=== PATIENT | female | born 1950 | race Caucasian/White ===

== ENCOUNTER 2021-06-17 08:43 | Emergency (ER) | payer MEDICARE, BC, SELFPAY ==
[2021-06-17 08:59] VITALS: BP 184/79; PULSE 66; O2SAT 99
[2021-06-17 09:00] VITALS: BP 179/82; PULSE 67; O2SAT 99
[2021-06-17 09:05] VITALS: BP 184/79; PULSE 76; RESP 18; TEMP 36.6; O2SAT 96; BMI 19.0
[2021-06-17 09:14] LABS: Add Manual Diff / Slide Review NO; Basophils Absolute Auto 100 /uL (0-100); Eosinophils Absolute Auto 100 /uL (0-450); Eosinophils Percent Auto 2.2 % (2-4); Hematocrit 41.9 % (36-46); Hemoglobin 13.9 g/dL (12.0-16.0); Lymphocytes Absolute Auto 1500 /uL (1100-4500); Lymphocytes Percent Auto 23.8 % (25-40); Mean Corpuscular HGB Conc 33.1 % (30-36); Mean Corpuscular Hemoglobin 29.8 PG (26-34); Mean Corpuscular Volume 90.1 fL (80-100); Monocytes Absolute Auto 300 /uL (0-900); Monocytes Percent Auto 5.1 % (3-14); Neutrophils Absolute Auto 4300 /uL (1500-7000); Neutrophils Percent Auto 67.9 % (50-75); Platelet Count 208 X10^3/uL (150-400); Red Blood Cell Count 4.65 X10^6/uL (4.0-5.2); Red Cell Distribution Width 12.6 % (11.6-14.8); White Blood Cell Count 6.3 X10^3/uL (4.5-11.0)
[2021-06-17 09:20] LABS: BUN Creatinine Ratio 27.4 (6-22); Blood Urea Nitrogen 20 mg/dL (7-17); Calcium 9.7 mg/dL (8.4-10.2); Carbon Dioxide 33 mmol/L (22-32); Chloride 102 mmol/L (98-107); Estimated Glomerular Filt Rate > 60.0 mL/min (>60); Glucose 99 mg/dL (80-110); HEMOLYSIS < 15 (0-50); Potassium 4.1 mmol/L (3.4-5.1); Sodium 142 mmol/L (137-145)
--- NOTE | 2021-06-17 09:24 | ED_ITS ---
HPI - Recheck/Abnormal Lab/Rx General Chief Complaint: Recheck/Abnormal Lab/Rx Stated Complaint: abnormal labs/potassium 7.7 Time Seen by Provider: 06/17/21 09:02 Source: patient Mode of arrival: Ambulatory Limitations: no limitations History of Present Illness HPI narrative: This is a 71-year-old female who had outpatient labs drawn as she has been feeling fatigued lately. She states she was told her potassium was 7.7 it was drawn yesterday and sent as an outpatient lab draw from [place] to [facility]. Patient has not had any known renal issues. She states she has had some fatigue and occasional vertigo. She is being referred to ENT and her physician told her there was something on her year that might be contributing. Otherwise she denies any symptoms at issues. She has occasiona lly had some burning with urine but this has been very intermittent. She denies any other chest pain, shortness of breath, no nausea or vomiting or other GI or urinary symptoms. She is on medicine for blood pressure. Related Data Previous Rx's Medication Instructions Recorded acyclovir 400 mg tablet 400 mg PO BID #180 tab 06/08/16 acyclovir 800 mg tablet 800 mg PO BIDP PRN #60 tab 06/08/16 hydrochlorothiazide 12.5 mg tablet 12.5 mg PO QDAY #90 tab 06/08/16 omeprazole 20 mg capsule,delayed 0 PO QDAY PRN #90 tab 11/01/16 release Allergies Allergy/AdvReac Type Severity Reaction Status Date / Time metoprolol [METOPROLOL] Allergy Unknown ER Verified 06/17/21 09:05 VISIT-HIGH BP BUT LOW HR Review of Systems Review of Systems ROS Unobtainable: All systems reviewed & are unremarkable except as noted in HPI and below Patient History Surgical History History of cataract removal with insertion of prosthetic lens Status post ovarian cystectomy Status post tubal ligation Family History Father Cancer Mother Heart disease Sister Age: 74 Lymphoma Cancer Social History Smoking Status: Never smoker Smoking Status: Never smoker Substance Use Type: does not use Exam Narrative Exam Narrative: GENERAL: Alert and oriented x three, thin female in no acute distress. HEENT: Head normocephalic, atraumatic, EOMI, pupils reactive, face symmetric, moist mucous membranes NECK: Supple, full range of motion CARDIOVASCULAR: Regular rate and rhythm without murmurs, rubs or gallops. RESPIRATORY: Breath sounds equal bilaterally, no wheezes rales or rhonchi. ABDOMEN: Soft, nontender. Normoactive bowel sounds all 4 quadrants. No guarding or rebound, rigidity, no mass EXTREMITIES: Normal range of motion, no clubbing or edema. Neurovascularly intact NEUROLOGICAL: Cranial nerves II through XII grossly intact. Moving all extremities SKIN: Warm, dry, no petechiae, no rashes or lesions. Initial Vital Signs Initial Vital Signs: Vital Signs Pulse Rate 66 06/17/21 08:59 Blood Pressure 184/79 H 06/17/21 08:59 Pulse Oximetry 99 06/17/21 08:59 Course Orders Ordered: ED Orders 06/17/21 08:55 BMP [Basic Metabolic Panel] Stat CBC Auto Diff [Complete Blood Count AUTO DIFF] Stat 06/17/21 09:03 EKG-12 Lead Stat Vital Signs Vital signs: Vital Signs - 8 hr 06/17/21 09:05 Temperature 98 F Pulse Rate 76 Respiratory Rate 18 Blood Pressure 184/79 H Pulse Oximetry 96 MDM - Recheck/Abnormal Lab/Rx Lab Data Result diagrams: 06/17/21 08:55 06/17/21 08:55 Labs: Lab Results 06/17/21 06/17/21 Range/Units 08:55 08:55 WBC 6.3 (4.5-11.0) X10^3/uL RBC 4.65 (4.0-5.2) X10^6/uL Hgb 13.9 (12.0-16.0) g/dL Hct 41.9 (36-46) % MCV 90.1 (80-100) fL MCH 29.8 (26-34) PG MCHC 33.1 (30-36) % RDW 12.6 (11.6-14.8) % Plt Count 208 (150-400) X10^3/uL Neut % (Auto) 67.9 (50-75) % Lymph % (Auto) 23.8 L (25-40) % [place] % (Auto) 5.1 (3-14) % Eos % (Auto) 2.2 (2-4) % Baso % (Auto) 1.0 (0-2) % Neut # (Auto) 4300 (2640-3167) /uL Lymph # (Auto) 1500 (1110-2578) /uL [place] # (Auto) 300 (0-900) /uL Eos # (Auto) 100 (0-450) /uL Baso # (Auto) 100 (0-100) /uL Sodium 142 (137-145) mmol/L Potassium 4.1 (3.4-5.1) mmol/L Chloride 102 (98-107) mmol/L Carbon Dioxide 33 H (22-32) mmol/L BUN 20 H (7-17) mg/dL Creatinine 0.73 (0.52-1.04) mg/dL Estimated GFR > 60.0 (>60) mL/min BUN/Creatinine Ratio 27.4 H (6-22) Glucose 99 (80-110) mg/dL Calcium 9.7 (8.4-10.2) mg/dL Urine Dip Bedside Urine Glucose Negative Bedside Urine Bilirubin - Negative Bedside Urine Ketone - Negative Urine Specific [place] 1.015 Bedside Urine Occult Blood - Negative Bedside Urine pH 5.5 Bedside Urine Protein - Negative Bedside Urine Urobilinogen - Negative Bedside Urine Nitrite - Negative Bedside Urine Leukocytes - Negative Esterase ECG Data Attestation: I personally reviewed and interpreted this ECG as follows: Interpretation: Sinus bradycardia rate of 55, DC 150 QRS 84 and QTC of 417. T-wave inverted in V1 V2. No acute changes otherwise. MDM Narrative Medical decision making narrative: This is a 71-year-old female on antihypertensive which she states starts with the letter L. patient was seen for outpatient labs for fatigue. She was told her potassium was elevated. On repeat labs today it is normal and suspect she had hemolysis [place] [facility] [place]. Patient did have EKG which shows some T-wave inversion but no other changes in V1 V2. Patient does not have any other symptoms besides fatigue and occasional vertigo which is being followed and she has been referred to ENT for a spot on her ear. Discharge Plan Departure Patient Disposition: Home Clinical Impression: No problem, feared complaint unfounded Activity Restrictions/Additional Instructions: Your potassium level today is normal. Your labs were repeated today including a CBC and BMP. Likely your labs that were drawn yesterday were hemolyzed and this can cause a falsely elevated potassium level. Please return if you have any new or concerning symptoms. Prescriptions: No Action acyclovir 400 MG tablet 400 mg PO BID Qty: 180 0RF acyclovir 800 MG tablet 800 mg PO BIDP PRNQty: 60 0RF hydrochlorothiazide 12.5 MG tablet 12.5 mg PO QDAY Qty: 90 2RF omeprazole 20 MG capsule,delayed release(DR/EC) 0 PO QDAY PRNQty: 90 1RF Referrals: Charlene Carrera ARNP [Primary Care Provider] -
[2021-06-17 09:30] VITALS: BP 176/81; PULSE 60; RESP 30; O2SAT 100
[2021-06-17 09:49] VITALS: BP 159/70; PULSE 64; O2SAT 99
== END 2021-06-17 09:51 | disposition home or self-care (01) ==
PROVIDERS: Emergency Provider Emergency Medicine; Family Provider Family Medicine; PCP Nurse Practitioner Family
DX: R53.83 Other fatigue (principal); R00.1 Bradycardia, unspecified; Z71.1 Person with feared health complaint in whom no diagnosis is made
CPT/HCPCS: 36415; 80048; 81003; 85025; 93005; 99283

== ENCOUNTER → 2021-08-16 08:14 | Outpatient (CLI) | payer MEDICARE, BC, SELFPAY ==
--- NOTE | 2021-08-16 | DI.MG.S_ITS ---
BILATERAL DIGITAL DIAGNOSTIC MAMMOGRAM 3D/2D: 08/16/2021 CLINICAL: Baseline. Mastodynia. No prior exams were available for comparison. The tissue of both breasts is heterogeneously dense. This may lower the sensitivity of mammography. No significant masses, calcifications, or other findings are seen in either breast. IMPRESSION: NEGATIVE There is no abnormality seen in the left breast to correspond with the reported pain at 2 o'clock that the patient reports is not currently present at the time of the exam. Clinical followup is recommended. There is no mammographic evidence of malignancy. A 1 year screening mammogram is recommended. This exam was interpreted at Station ID: [id number]. NOTE: For mammograms, a report in lay terms will be sent to the patient. Approximately 15% of breast malignancies will not be visualized mammographically. In the management of a palpable breast mass, a negative mammogram must not discourage biopsy of a clinically suspicious lesion. Electronically Signed By: Keyur Hunt M.D. ar/:08/16/2021 10:02:13 letter sent: Clinical Evaluation ACR BI-RADS Category 1: Negative 3341F
== END ==
PROVIDERS: Family Provider Family Medicine; PCP Nurse Practitioner Family; Referring Provider Nurse Practitioner Family; Visit Provider Nurse Practitioner Family
DX: N64.4 Mastodynia (principal); M81.0 Age-related osteoporosis without current pathological fracture; Z78.0 Asymptomatic menopausal state; Z79.890 Hormone replacement therapy
CPT/HCPCS: 77066; 77080; G0279

== ENCOUNTER 2022-03-28 08:11 | Day surgery (SDC) | payer MEDICARE, BC, SELFPAY ==
--- NOTE | 2022-03-28 | PATH_ITS ---
[facility] Accession Number: [id number] . 01 Material submitted: . PART A: stomach - STOMACH PART B: esophagus, E-G Junction - GE JUCNTION . 01 Diagnosis: A. Stomach, Biopsy: Gastric mucosa with minimal chronic nonspecific inflammation. No Helicobacter pylori organisms identified on immunohistochemical evaluation. No intestinal metaplasia, dysplasia, or malignancy identified. . B. GE Junction, Biopsy: Squamocolumnar junctional mucosa with mild chronic inflammation. No goblet cell metaplasia or fungal organisms identified on H/E slide. No dysplasia or malignancy identified. [facility] 03/30/2022 1134 Local . 01 Electronically signed: . Magnolia Koenig MD, Pathologist NPI- [id number] . 01 Gross description: . Part A: STOMACH: Received in formalin are 3 fragment(s) of walker, soft tissue measuring 0.3 x 0.1 x 0.1 cm to 0.1 x 0.1 x 0.1 cm submitted entirely in 1 cassette(s) Part B: GE JUCNTION: Received in formalin is 1 fragment(s) of walker, soft tissue measuring 0.2 x 0.1 x 0.1 cm submitted entirely in 1 cassette(s) /CPE 03/29/2022 0622 Local . 01 Microscopic: . An immunohistochemical stain was performed to evaluate for Helicobacter organisms and is negative. The control stain showed appropriate reactivity. . 01 Pathologist provided ICD-10: K29.30, K20.80, K21.9 . 01 CPT . 338995, 799729, [id number] Specimen Comment: A courtesy copy of this report has been sent to [phone] Performed at: 01 [facility] [address] [place] [address] [address], [place], [place] [id number] MD Joel Bell MD Phone: [phone]
[2022-03-28] MEDS: LACTATED RINGERS 1,000 ML 200 ML IV (08:39)
[2022-03-28 08:52] VITALS: BP 147/78; PULSE 67; RESP 12; TEMP 36.7; O2SAT 99
--- NOTE | 2022-03-28 09:55 | PM.HP.1 ---
History of Present Illness History of Present Illness Date Patient Seen: 03/28/22 Time Patient Seen: 09:55 Chief complaint: SDC Narrative: 72-year-old woman with dysphagia here for esophagoduodenoscopy and colonoscopy. Please refer to the H& P from January 2022 for further detail. Patient History Surgical History History of cataract removal with insertion of prosthetic lens Status post ovarian cystectomy Status post tubal ligation Family & Social History Family History Father Cancer Mother Heart disease Sister Age: 75 Lymphoma Cancer Social History: household members spouse Tobacco & Substance use: Smoking Status Never smoker alcohol intake frequency holiday/special occasion Substance Use Type does not use Meds Home Medications and Allergies Home Medications Medication Instructions Recorded Confirmed Type cholecalciferol (vitamin D3) 125 125 mcg PO DAILY 01/27/22 03/28/22 History mcg (5,000 unit) capsule dexamethasone 0.7 mg intravitreal 0.7 mg intravitreal DAILY 01/27/22 03/28/22 History implant (Ozurdex) fluticasone propionate 50 2 spray intranasal DAILY 01/27/22 03/28/22 History mcg/actuation nasal spray,suspension losartan 25 mg tablet 25 mg PO DAILY 01/27/22 03/28/22 History omeprazole 20 mg capsule,delayed 20 mg PO QDAY 03/28/22 03/28/22 History release Allergies Allergy/AdvReac Type Severity Reaction Status Date / Time metoprolol [METOPROLOL] Allergy Unknown ER Verified 03/28/22 08:41 VISIT-HIGH BP BUT LOW HR fentanyl AdvReac Intermediate Verified 03/28/22 08:41 Exam Vital Signs (past 8 hours): - 03/28/22 08:52 Temperature 98.1 F Pulse Rate 67 Respiratory Rate 12 Blood Pressure 147/78 H Pulse Oximetry 99 Oxygen Delivery Method Room Air Oxygen Delivery Method Room Air Narrative Exam Narrative: General adult woman alert oriented no acute distress Abdomen soft nontender nondistended Assessment & Plan Assessment and plan (1) Esophageal dysphagia: Status: Acute Assessment & Plan narrative: 72-year-old woman with esophageal dysphagia here for EGD possible dilation and screening colonoscopy. Overview of the procedures were discussed. Procedural risks including bleeding, missed diagnosis, intestinal perforation were discussed. Questions answered she is in agreement with this plan. Time Spent With Patient Critical Care time: I spent a total of [] minutes of critical care time on this patient's care today; this time is exclusive of procedural time.
--- NOTE | 2022-03-28 10:00 | PM.OP.EC ---
Operative Date/Time/Diagnoses Date of procedure: 03/28/22 Time of procedure: 10:00 Pre-op diagnosis: Esophageal dysphagia, screening colonoscopy Post-op diagnosis: same Procedure & Clinicians Study performed: Esophagoduodenoscopy and colonoscopy Same procedure as scheduled: Yes Indications: Esophageal dysphagia, screening colonoscopy Surgeon: Rafiq Holman Procedure Notes Procedure in detail: The history and physical was performed/updated and the patient is ASA class is 2 . The procedure was discussed in detail with the patient. Potential risks complications including infection, bleeding, missed diagnosis, perforation, need for surgery, and were explained. Their questions were answered and informed consent was obtained. Patient placed in left lateral decubitus position. Time out was performed. Sedation was administered by anesthesia. A bite block was placed. the scope was inserted into the mouth and advanced through the esophagus and into the stomach. There was no esophageal stricture periods the stomach was notable for mild gastritis no active hemorrhage or ulcer. The pylorus was intubated and the duodenum was normal to the 2nd portion. The scope was retroflexed within the stomach and there was a moderate-sized hiatal hernia. No ulcers, or gastritis. The scope was withdrawn into the esophagus the Z line was seen at 35 cm from the incisions. There was no Lackey's esophagitis or masses or strictures. Stomach was desufflated and scope removed. Patient tolerated procedure well. Examination began with a thorough inspection of the perianal area there was no evidence of fissures, fistulae, external hemorrhoids or cutaneous malignancy. The colonoscopy scope was then placed into the anal canal and was advanced to the cecum, which was identified by the ileocecal valve, the appendiceal orifice and the confluence of the taenia. The scope was then slowly withdrawn examining colon thoroughly in all directions, irrigating it of any residual stool. FINDINGS 1. Gastritis-mild. No active hemorrhage. Biopsies taken with forceps. 2. GE junction at 37 cm from incisors biopsies taken. 3. Normal colonoscopy The patient tolerated the procedure well. They will be discharged once criteria are met. The prep was of good/excellent quality. The withdrawl time was 7 minutes. Specimen(s): other (Gastric biopsy, GE junction.) Impression: Normal colonoscopy. No esophageal stricture. Mild gastritis Post-procedure Plan for aftercare: Increase omeprazole to 20 mg twice daily No need for further colonoscopy Disposition: same day surgery
[2022-03-28 10:24] VITALS: BP 136/73; PULSE 86; RESP 19; TEMP 36.2; O2SAT 100
[2022-03-28 10:29] VITALS: BP 146/81; PULSE 74; RESP 17; O2SAT 100
[2022-03-28 10:34] VITALS: BP 148/73; PULSE 69; RESP 16; O2SAT 98
[2022-03-28 10:53] VITALS: BP 145/75; PULSE 68; RESP 13; TEMP 36.3; O2SAT 100
== END 2022-03-28 10:57 | disposition home or self-care (01) ==
PROVIDERS: Family Provider Family Medicine; PCP Family Medicine; Referring Provider Surgery; Visit Provider Surgery
PROC: 0DJ08ZZ Inspection of Upper Intestinal Tract, Via Natural or Artificial Opening Endoscopic (ICD-10-PCS; CPT 43235; principal; 2022-03-28 09:45)
PROC: 0DJD8ZZ Inspection of Lower Intestinal Tract, Via Natural or Artificial Opening Endoscopic (ICD-10-PCS; CPT 45378; 2022-03-28 09:45)
DX: Z12.11 Encounter for screening for malignant neoplasm of colon (principal); R13.10 Dysphagia, unspecified; K44.9 Diaphragmatic hernia without obstruction or gangrene; K29.50 Unspecified chronic gastritis without bleeding
CPT/HCPCS: 43239; G0121; J2704

== ENCOUNTER 2022-09-01 11:00 | Emergency (ER) | payer MEDICARE, BC, SELFPAY ==
[2022-09-01 11:17] VITALS: BP 193/90; PULSE 63; RESP 16; TEMP 37.2; O2SAT 100; BMI 18.2
--- NOTE | 2022-09-01 11:20 | DI.RAD.S_ITS ---
PROCEDURE: XR CHEST 1V INDICATIONS: chest pain TECHNIQUE: One view of the chest was acquired. COMPARISON: None. FINDINGS: Surgical changes and devices: None. Lungs and pleura: Lungs are clear. No pleural effusions or pneumothorax. Calcified granuloma of the right lower lobe. Mediastinum: Mediastinal contours appear normal. Heart size is normal. Bones and chest wall: No suspicious bony lesions. Overlying soft tissues appear unremarkable. IMPRESSION: No acute cardiopulmonary process. Dictated by: Rex Greene M.D. on 09/01/2022 at 12:16 Approved by: Rex Greene M.D. on 09/01/2022 at 12:17
[2022-09-01 11:53] LABS: Add Manual Diff / Slide Review NO; Basophils Absolute Auto 100 /uL (0-100); Basophils Percent Auto 1.1 % (0-2); Eosinophils Absolute Auto 100 /uL (0-450); Eosinophils Percent Auto 1.3 % (2-4); Hematocrit 40.1 % (36-46); Hemoglobin 13.3 g/dL (12.0-16.0); Lymphocytes Absolute Auto 1300 /uL (1100-4500); Lymphocytes Percent Auto 22.4 % (25-40); Mean Corpuscular Hemoglobin 29.6 PG (26-34); Mean Corpuscular Volume 89.5 fL (80-100); Monocytes Absolute Auto 300 /uL (0-900); Monocytes Percent Auto 5.1 % (3-14); Neutrophils Absolute Auto 4000 /uL (1500-7000); Neutrophils Percent Auto 70.1 % (50-75); Platelet Count 245 X10^3/uL (150-400); Red Blood Cell Count 4.48 X10^6/uL (4.0-5.2); Red Cell Distribution Width 13.1 % (11.6-14.8); White Blood Cell Count 5.6 X10^3/uL (4.5-11.0)
[2022-09-01 11:58] LABS: Alanine Aminotransferase 21 IU/L (<35); Albumin 4.3 g/dL (3.5-5.0); Albumin Globulin Ratio 1.5 (1.0-2.8); Alkaline Phosphatase 72 U/L (38-126); Aspartate Aminotransferase 26 IU/L (14-36); BUN Creatinine Ratio 26.2 (6-22); Bilirubin Total 0.5 mg/dL (0.2-1.3); Blood Urea Nitrogen 17 mg/dL (7-17); Calcium 9.6 mg/dL (8.4-10.2); Carbon Dioxide 27 mmol/L (22-32); Chloride 106 mmol/L (98-107); Creatine Kinase 62 U/L (30-135); Estimated Glomerular Filt Rate > 60 mL/min (>60); Globulin 2.9 g/dL (1.7-4.1); Glucose 92 mg/dL (80-110); HEMOLYSIS < 15 (0-50); INR 1.1 (0.9-1.3); Lipase 119 U/L (23-300); Potassium 4.2 mmol/L (3.4-5.1); Prothrombin Time 12.3 SECONDS (10.1-12.7); Sodium 139 mmol/L (137-145); Total Protein 7.2 g/dL (6.3-8.2)
[2022-09-01 12:01] LABS: PTT Partial Thromboplastin Tim 33 SECONDS (26-36)
[2022-09-01 12:09] LABS: Troponin I < 0.012 ng/mL (0.01-0.034)
[2022-09-01 15:32] VITALS: BP 171/74; PULSE 64; RESP 18; O2SAT 100
[2022-09-01 16:02] LABS: Troponin I < 0.012 ng/mL (0.01-0.034)
--- NOTE | 2022-09-01 17:01 | ED_ITS ---
HPI - Arrhythmia/Palpitations General Chief Complaint: Arrhythmia/Palpitations Stated Complaint: Heart flutter this morning, L arm numb Time Seen by Provider: 09/01/22 16:59 History of Present Illness HPI narrative: This is a 72-year-old female with history of hypertension on losartan, she also has branch retinal vein occlusion and gets eye injections every 3 months with steroids. Patient states that last night she laid down about 9:00 a.m. at night she felt what she describes as flip-flopping in her chest that was pretty significant for about 2 minutes. She states it resolved she has not had anything as persistent. She states she would a little bit epigastric discomfort with some belching. Patient states she is had some Tums. She fell asleep and states that her epigastric pain resolved. She states she was belching a lot. She denies any shortness of breath, no lightheadedness or syncope. No fevers, cold cough, cough or congestion. She states she is has not chest pain remotely in the past but nothing recently she is occasionally had some fluttering in her chest but not this aggressive. No nausea no vomiting no issues with bowel movements or urination. No swelling in extremities. Patient states she is been a little bit more fatigued lately but is able to do all her normal activities. She is on losartan she takes a gummy for calcium and vitamin-D supplement. No aspirin or thinners. She would a tubal ligation in the past she is had some biopsies a lump in her breast and other locations but denies cancer. She states she does get steroid injections for long period of time every 3 months. No tobacco, alcohol or illicit. She lives on [facility] is her primary care. Patient is accompanied by her . Related Data Home Medications Medication Instructions Recorded Confirmed cholecalciferol (vitamin D3) 125 125 mcg PO DAILY 01/27/22 03/28/22 mcg (5,000 unit) capsule dexamethasone 0.7 mg intravitreal 0.7 mg intravitreal DAILY 01/27/22 03/28/22 implant (Ozurdex) fluticasone propionate 50 2 spray intranasal DAILY 01/27/22 03/28/22 mcg/actuation nasal spray,suspension losartan 25 mg tablet 25 mg PO DAILY 01/27/22 03/28/22 Previous Rx's Medication Instructions Recorded omeprazole 20 mg capsule,delayed 20 mg PO BID #30 caps 03/28/22 release Allergies Allergy/AdvReac Type Severity Reaction Status Date / Time metoprolol [METOPROLOL] Allergy Unknown ER Verified 03/28/22 08:41 VISIT-HIGH BP BUT LOW HR fentanyl AdvReac Intermediate Verified 03/28/22 08:41 Review of Systems Review of Systems ROS Unobtainable: All systems reviewed & are unremarkable except as noted in HPI and below Patient History Surgical History History of cataract removal with insertion of prosthetic lens Status post ovarian cystectomy Status post tubal ligation Family History Father Cancer Mother Heart disease Sister Age: 76 Lymphoma Cancer Social History household members: spouse Smoking Status: Never smoker Smoking Status: Never smoker alcohol intake frequency: holidays/special occasions only Substance Use Type: does not use Exam Narrative Exam Narrative: GENERAL: Alert and oriented x three, thin elderly female in mild distress. HEENT: Head normocephalic, atraumatic, EOMI, pupils reactive, face symmetric, moist mucous membranes NECK: Supple, full range of motion CARDIOVASCULAR: Regular rate and rhythm without murmurs, rubs or gallops. No JVD. No swelling bilateral lower extremities. RESPIRATORY: Breath sounds equal bilaterally, no wheezes rales or rhonchi. No tachypnea, no accessory muscle use. ABDOMEN: Soft, nontender. Normoactive bowel sounds all 4 quadrants. No guarding or rebound, rigidity, no mass : No CVA tenderness EXTREMITIES: Normal range of motion, no clubbing or edema. Neurovascularly intact NEUROLOGICAL: Cranial nerves II through XII grossly intact. Moving all extremities SKIN: Warm, dry, no petechiae, no rashes or lesions. Initial Vital Signs Initial Vital Signs: Vital Signs Temperature 99.0 F 09/01/22 11:17 Pulse Rate 63 09/01/22 11:17 Respiratory Rate 16 09/01/22 11:17 Blood Pressure 193/90 H 09/01/22 11:17 Pulse Oximetry 100 09/01/22 11:17 Oxygen Delivery Method Room Air 09/01/22 11:17 Course Orders Ordered: ED Orders 09/01/22 11:20 XR chest 1V Stat 09/01/22 11:31 EKG-12 Lead Stat 09/01/22 11:38 Complete Blood Count AUTO DIFF Stat Comprehensive Metabolic Panel Stat Lipase Stat Magnesium Stat PTT Partial Thromboplastin [place] Stat Prothrombin Time INR Stat Troponin & CK Cardiac Panel Stat 09/01/22 15:22 Troponin I Stat 09/01/22 15:27 EKG-12 Lead Stat 09/01/22 17:04 COVID19 -Nasal RAPID Stat Vital Signs Vital signs: Vital Signs - 8 hr 09/01/22 11:17 09/01/22 15:32 09/01/22 17:05 Temperature 99.0 F Pulse Rate 63 64 63 Respiratory Rate 16 18 Blood Pressure 193/90 H 171/74 H Pulse Oximetry 100 100 100 Oxygen Delivery Method Room Air Room Air MDM - Arrhythmia/Palpitations Lab Data 09/01/22 11:38 09/01/22 11:38 Labs: Lab Results 09/01/22 09/01/22 09/01/22 Range/Units 11:38 11:38 11:38 WBC 5.6 (4.5-11.0) X10^3/uL RBC 4.48 (4.0-5.2) X10^6/uL Hgb 13.3 (12.0-16.0) g/dL Hct 40.1 (36-46) % MCV 89.5 (80-100) fL MCH 29.6 (26-34) PG MCHC 33.0 (30-36) % RDW 13.1 (11.6-14.8) % Plt Count 245 (150-400) X10^3/uL Neut % (Auto) 70.1 (50-75) % Lymph % (Auto) 22.4 L (25-40) % [place] % (Auto) 5.1 (3-14) % Eos % (Auto) 1.3 L (2-4) % Baso % (Auto) 1.1 (0-2) % Neut # (Auto) 4000 (2246-9075) /uL Lymph # (Auto) 1300 (6812-9403) /uL [place] # (Auto) 300 (0-900) /uL Eos # (Auto) 100 (0-450) /uL Baso # (Auto) 100 (0-100) /uL PT 12.3 (10.1-12.7) SECONDS INR 1.1 (0.9-1.3) APTT 33 (26-36) SECONDS Sodium 139 (137-145) mmol/L Potassium 4.2 (3.4-5.1) mmol/L Chloride 106 (98-107) mmol/L Carbon Dioxide 27 (22-32) mmol/L BUN 17 (7-17) mg/dL Creatinine 0.65 (0.52-1.04) mg/dL Estimated GFR > 60 (>60) mL/min BUN/Creatinine Ratio 26.2 H (6-22) Glucose 92 (80-110) mg/dL Calcium 9.6 (8.4-10.2) mg/dL Magnesium 2.0 (1.6-2.3) mg/dL Total Bilirubin 0.5 (0.2-1.3) mg/dL AST 26 (14-36) IU/L ALT 21 (<35) IU/L Alkaline Phosphatase 72 (38-126) U/L Total Creatine Kinase 62 (30-135) U/L CK-MB (CK-2) TNP CK-MB (CK-2) Rel Index TNP Troponin I < 0.012 (0.01-0.034) ng/mL Total Protein 7.2 (6.3-8.2) g/dL Albumin 4.3 (3.5-5.0) g/dL Globulin 2.9 (1.7-4.1) g/dL Albumin/Globulin Ratio 1.5 (1.0-2.8) Lipase 119 (23-300) U/L SARS-CoV-2 (PCR) (Negative) 09/01/22 09/01/22 Range/Units 15:22 17:04 WBC (4.5-11.0) X10^3/uL RBC (4.0-5.2) X10^6/uL Hgb (12.0-16.0) g/dL Hct (36-46) % MCV (80-100) fL MCH (26-34) PG MCHC (30-36) % RDW (11.6-14.8) % Plt Count (150-400) X10^3/uL Neut % (Auto) (50-75) % Lymph % (Auto) (25-40) % [place] % (Auto) (3-14) % Eos % (Auto) (2-4) % Baso % (Auto) (0-2) % Neut # (Auto) (1844-6915) /uL Lymph # (Auto) (4073-2939) /uL Ferry # (Auto) (0-900) /uL Eos # (Auto) (0-450) /uL Baso # (Auto) (0-100) /uL PT (10.1-12.7) SECONDS INR (0.9-1.3) APTT (26-36) SECONDS Sodium (137-145) mmol/L Potassium (3.4-5.1) mmol/L Chloride (98-107) mmol/L Carbon Dioxide (22-32) mmol/L BUN (7-17) mg/dL Creatinine (0.52-1.04) mg/dL Estimated GFR (>60) mL/min BUN/Creatinine Ratio (6-22) Glucose (80-110) mg/dL Calcium (8.4-10.2) mg/dL Magnesium (1.6-2.3) mg/dL Total Bilirubin (0.2-1.3) mg/dL AST (14-36) IU/L ALT (<35) IU/L Alkaline Phosphatase (38-126) U/L Total Creatine Kinase (30-135) U/L CK-MB (CK-2) CK-MB (CK-2) Rel Index Troponin I < 0.012 (0.01-0.034) ng/mL Total Protein (6.3-8.2) g/dL Albumin (3.5-5.0) g/dL Globulin (1.7-4.1) g/dL Albumin/Globulin Ratio (1.0-2.8) Lipase (23-300) U/L SARS-CoV-2 (PCR) Negative (Negative) Urine Dip Bedside Urine Glucose Negative Bedside Urine Bilirubin - Negative Bedside Urine Ketone - Negative Urine Specific [place] 1.010 Bedside Urine Occult Blood - Negative Bedside Urine pH 6.0 Bedside Urine Protein - Negative Bedside Urine Urobilinogen - Negative Bedside Urine Nitrite - Negative Bedside Urine Leukocytes - Negative Esterase Imaging Data Chest x-ray: Radiologist's Impresson: [address] [address] XRay Report Signed Patient: Kalani Mukherjee MR#: [id number] : 1950 Acct:[id number] Age/Sex: 72 / F Date of Service: 09/01/22 Loc: ED Accession Number: [id number] ?? Procedure: XR chest 1V Ordering Provider: Aleyda Raines D.O. PROCEDURE:? XR CHEST 1V ? INDICATIONS:? chest pain ? TECHNIQUE:? One view of the chest was acquired.? ? COMPARISON:? None. ? FINDINGS:? ? Surgical changes and devices:? None.? ? Lungs and pleura:? Lungs are clear.? No pleural effusions or pneumothorax.? Calcified granuloma of the right lower lobe. ? Mediastinum:? Mediastinal contours appear normal.? Heart size is normal.? ? Bones and chest wall:? No suspicious bony lesions.? Overlying soft tissues appear unremarkable.? ? IMPRESSION:? No acute cardiopulmonary process. ? ? ? Dictated by: Rex Greene M.D. on 09/01/2022 at 12:16 ? ? Approved by: Rex Greene M.D. on 09/01/2022 at 12:17?? ECG Data Attestation: I personally reviewed and interpreted this ECG as follows: Interpretation: Sinus bradycardia, rate of 55 RI 144 QRS 84, QTC 407. No acute ST elevation. Patient has some inverted T-waves V1 V2. Sinus rhythm rate of 62 RI 152, QRS 82 QTC 434. No dynamic changes. MDM Narrative Medical decision making narrative: This is a 72-year-old female who presents with complaint of palpitations last night that self-resolved. Patient denies any other symptoms other than some epigastric discomfort and belching patient states that resolved after some Tums she fell asleep and has not had any since then. She has negative CBC, CMP, troponin x2, LFTs, coags. Chest x-ray is negative. Urine is negative. Patient has some T-wave inversion in V1 2 3 but is present throughout EKGs including June of 2021. Discussed with patient I would recommend follow-up with Holter monitor or ZIO patch does not sound like she is been having frequent palpitations we discussed could be PVCs but would recommend some further workup. Patient and I discussed return precautions all questions answered. Discharge Plan Departure Patient Disposition: Home Clinical Impression: Palpitations Instructions: DI for Palpitations Activity Restrictions/Additional Instructions: Please follow-up with your physician for recheck, I would discuss options for Holter monitor or ZIO patch if you are having recurrent or persistent palpitations. You can continue your home medications as prescribed. Please return for recurrent episodes, persistent fast or irregular heartbeat, new chest pain, shortness of breath, lightheadedness or passing out, new swelling in her extremities, persistent vomiting, sweatiness or diaphoresis or other new or concerning changes. Prescriptions: No Action Ozurdex 0.7 mg implant 0.7 mg intravitreal DAILY losartan 25 mg tablet 25 mg PO DAILY cholecalciferol (vitamin D3) 125 mcg (5,000 unit) capsule 125 mcg PO DAILY fluticasone propionate 50 mcg/actuation spray,suspension 2 spray intranasal DAILY Rx Instructions: administer into each nostril omeprazole 20 mg capsule,delayed release(DR/EC) 20 mg PO BID Qty: 30 0RF Referrals: Ameena Metz MD [Primary Care Provider] - Stand Alone Forms: Patient Portal/API
[2022-09-01 17:05] VITALS: PULSE 63; O2SAT 100
[2022-09-01 17:45] LABS: COVID19 -Nasal RAPID Negative (Negative)
== END 2022-09-01 17:25 | disposition home or self-care (01) ==
PROVIDERS: Emergency Provider Emergency Medicine; Family Provider Family Medicine; PCP Family Medicine
DX: R00.2 Palpitations (principal); R00.1 Bradycardia, unspecified; Z20.822 Contact with and (suspected) exposure to COVID-19
CPT/HCPCS: 36415; 71045; 80053; 81003; 82550; 83690; 83735; 84484; 85025; 85610; 85730; 87635; 93005; 99284; C9803

== ENCOUNTER → 2024-02-06 08:06 | Outpatient (CLI) | payer MEDICARE, BC, SELFPAY ==
--- NOTE | 2024-02-06 08:09 | DI.MRI.S_ITS ---
PROCEDURE: MR LUMBAR SPINE WO CON INDICATIONS: SPONDYLOSIS LUMBAR REGION TECHNIQUE: Noncontrast sagittal T1 spin echo and T2 fast echo, sagittal STIR, and T2 fast spin echo through the lumbar spine. In cases with scoliosis, additional coronal T2 fast spin echo may be performed. COMPARISON: None. FINDINGS: Image quality: Excellent. Alignment and Curvature: There is normal bony alignment. Bone Marrow: No gross marrow edema. No acute vertebral body compression fractures. Spinal Cord: Conus medullaris terminates at the L1 level. Visualized cord demonstrates normal signal and size. Paraspinous Soft Tissues: No paravertebral masses. T12-L1: Mild disc desiccation. No significant disc bulge, canal stenosis or neural foraminal narrowing. L1-L2: Disc desiccation and mild loss of disc height. Diffuse disc bulge and bilateral facet arthrosis is seen without significant central canal stenosis or neural foraminal narrowing. L2-L3: Disc desiccation and degenerative endplate changes are seen. Broad-based disc bulge and bilateral facet arthrosis without significant central canal stenosis or neural foraminal narrowing. L3-L4: Disc desiccation and bilateral facet arthrosis is seen with hypertrophy of ligamentum flavum. Mild diffuse disc bulge. There is mild central canal stenosis, no significant neural foraminal narrowing. L4-L5: Loss of disc height and disc desiccation. Broad-based disc bulge and bilateral facet arthrosis with mild central canal stenosis and moderate left-sided neural foraminal narrowing. Mild right-sided neural foraminal narrowing is also seen. L5-S1: Loss of disc height and disc desiccation. Mild diffuse disc bulge and bilateral facet arthrosis with mild left-sided neural foraminal narrowing. No significant central canal stenosis. IMPRESSION: 1. 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 2. No marrow edema. No acute compression fracture or significant spondylolisthesis. No gross paraspinous soft tissue abnormalities. Dictated by: Antonio Dutton M.D. on 02/06/2024 at 16:14 Approved by: Antonio Dutton M.D. on 02/06/2024 at 16:21
== END ==
LOC: MRI 08:07
PROVIDERS: Family Provider Family Medicine; PCP Family Medicine; Referring Provider Physician Assistant; Visit Provider Physician Assistant
DX: M47.816 Spondylosis without myelopathy or radiculopathy, lumbar region (principal); M47.817 Spondylosis without myelopathy or radiculopathy, lumbosacral region; M51.369 Other intervertebral disc degeneration, lumbar region without mention of lumbar back pain or lower extremity pain; M51.379 Other intervertebral disc degeneration, lumbosacral region without mention of lumbar back pain or lower extremity pain; M48.061 Spinal stenosis, lumbar region without neurogenic claudication; M48.07 Spinal stenosis, lumbosacral region
CPT/HCPCS: 72148